=== PATIENT | male | born 1965 | race Caucasian/White ===

== ENCOUNTER 2019-05-20 15:44 | Emergency (ER) | payer BC ==
[2019-05-20] MEDS ORDERED: ONDANSETRON HCL IV 4 MG/2 ML VIAL IV ONE (15:59)
[2019-05-20] MEDS ORDERED: SODIUM CHLORIDE 0.9% 500 ML IV ONE (15:59)
[2019-05-20] MEDS ORDERED: KETOROLAC 30 MG/ML VIAL IVP ONE (16:00)
--- NOTE | 2019-05-20 16:05 | Emergency Department Record ---
History of Present Illness - General Chief Complaint: Abdominal Pain Stated Complaint: abd pain Time Seen by Provider: 05/20/19 15:56 Source: Patient Mode of Arrival: Ambulatory Limitations: No limitations - History of Present Illness Initial Comments: The patient is here due the acute onset of sharp stabbing suprapubic AP about 3 hours ago. The patient has had some nausea and vomiting with it but no flank pain. He does have a hx of kidney stones but has not had pain like this with them. There has been no fever, chills, or hematuria. MD Complaint: Abdominal pain Onset/Timin -: Hour(s) Location: Suprapubic Radiation: None Severity scale (1-10): 10 Quality: Sharp Consistency: Constant Improves With: Nothing Worsens With: Nothing Associated Symptoms: Nausea, Vomiting - Related Data Home Medications Medication Instructions Recorded Confirmed Last Taken No Home Med [NO HOME MEDS] 05/20/19 05/20/19 Unknown Allergies Allergy/AdvReac Type Severity Reaction Status Date / Time No Known Drug Allergies Allergy Verified 05/20/19 15:55 Travel Screening - Travel/Exposure Within Last 30 Days Have you traveled within the last 30 days?: No Review of Systems Constitutional: Denies: Chills, Fever Eyes: Denies: Eye discharge ENT: Denies: Congestion Respiratory: Denies: Cough, Dyspnea Past Medical History - SOCIAL HISTORY Smoking Status: Current every day smoker Alcohol Use: None Drug Use: None - RESPIRATORY Hx Respiratory Disorders: No - CARDIOVASCULAR Hx Cardio Disorders: No - NEURO Hx Neuro Disorders: No - GI Hx GI Disorders: No - Hx Genitourinary Disorders: Yes Hx Prostate Problems: Yes - MUSCULOSKELETAL Hx Musculoskeletal Disorders: No - PSYCH Hx Psych Problems: No - HEMATOLOGY/ONCOLOGY Hx Hematology/Oncology Disorders: No Family Medical History Any Significant Family History?: No Physical Exam - General General Appearance: Alert, Cooperative, Mild distress - Head Head exam: Atraumatic, Normocephalic - Eye Eye exam: Normal appearance, PERRL - ENT Throat exam: Normal inspection. negative: Tonsillar erythema, Tonsillar exudate - Neck Neck exam: Normal inspection, Full ROM. negative: Tenderness - Respiratory Respiratory exam: Normal lung sounds bilaterally. negative: Respiratory distress - Cardiovascular Cardiovascular Exam: Regular rate, Normal rhythm, Normal heart sounds. negative: Diastolic murmur, Systolic murmur - GI/Abdominal GI/Abdominal exam: Soft, Tenderness (There is significant suprapubic tenderness with no masses or obvious hernia's.). negative: Distended, Rebound, Rigid - exam: Circumcision, Normal inspection. negative: Scrotal swelling, Testicular tenderness, Urethral discharge - Extremities Extremities exam: Normal inspection, Full ROM, Normal capillary refill. negative: Tenderness - Neurological Neurological exam: Alert. negative: Motor sensory deficit Course Vital Signs 05/20/19 15:47 Temperature 97.7 F Pulse Rate 86 Respiratory 22 Rate Blood Pressure 136/87 Pulse Ox 100 - Reevaluation(s) Reevaluation #1: The patient is doing a LOT better at this time. His pain has completely resolved and he is feeling very well. I did discus the CT results with him and the fact the stone almost definitely has passed due to the pain being completely gone. 05/20/19 17:22 Reevaluation #2: The patient is doing very well at this time. He is pain free and resting comfortably. We are just waiting on the urine result. 05/20/19 17:44 Reevaluation #3: I did discuss the need to only take Tylenol for pain due to the mildly elevated kidney function tests. I also did discus the need to have his BUN and CR rechecked next week to be sure they are improving. 05/20/19 18:03 Medical Decision Making - Data Complexity MDM Data: Labs Ordered and/or Reviewed, X-Ray Ordered and/or Reviewed - Lab Data Result diagrams: 05/20/19 16:00 05/20/19 16:00 - Radiology Data Radiology results: Report reviewed (Abd CT: 2 mm distal R ureter stone with mild to mod hydro at level of bladder wall.) Disposition Disposition: Discharge Clinical Impression: Ureteral stone with hydronephrosis Disposition: Home, Self-Care Condition: (2) Stable Instructions: Renal Colic (ED) Additional Instructions: Please drink plenty of fluids and take Tylenol for pain. Please see your family doctor next week to have your kidney function tests repeated to be sure they are coming down. Return to the ER for any worsening pain, fever, or vomiting. Forms: Patient Portal Access Time of Disposition: 18:05 Quality - Quality Measures Quality Measures: N/A - Blood Pressure Screening View Details: Yes Does Patient Have Any of the Following: No Blood Pressure Classification: Pre-Hypertensive BP Reading Systolic Measurement: 136 Diastolic Measurement: 87 Screening for High Blood Pressure: < Pre-Hypertensive BP, F/U Documented > [G8950] Pre-Hypertensive Follow-up Interventions: Referral to alternative/primary care provider.
[2019-05-20 16:08] LABS: HEMATOCRIT 43.8 % (42.0-52.0); HEMOGLOBIN 15.6 gm/dl (14.0-18.0); MEAN CELL VOLUME 85.5 fl (81-97); MEAN CORPUSCULAR HEMOGLOBIN 30.5 pg (27-33); MEAN CORPUSCULAR HGB CONC 35.6 g/dl (32-36); MEAN PLATELET VOLUME 9.1 fl (7.4-10.4); PLATELET COUNT 420 K/uL (130-400); RED BLOOD COUNT 5.12 M/uL (4.40-5.70); RED CELL DISTRIBUTION WIDTH 13.3 % (11.5-14.5); WHITE BLOOD COUNT W/O DIFF 15.7 K/uL (4.2-12.2)
[2019-05-20] MEDS ORDERED: HYDROMORPHONE HCL 2 MG/ML VIAL IVP ONE (16:16)
[2019-05-20 16:19] LABS: BLOOD UREA NITROGEN 18 mg/dL (6-20); CREATININE 1.4 mg/dL (0.7-1.2); EST GLOMERULAR FILTRATION RATE 56 mL/min
[2019-05-20 16:20] LABS: LIPASE 40 U/L (13-60); TOTAL PROTEIN 7.8 g/dL (6.6-8.7)
[2019-05-20 16:22] LABS: GLUCOSE,RANDOM 125 mg/dL (74-109)
[2019-05-20 16:24] LABS: ALBUMIN 4.9 g/dL (4.0-5.0); ALKALINE PHOSPHATASE 99 U/L (40-129); ALT/SGPT 19 U/L (<41); AST/SGOT 20 U/L (10.0-50.0)
[2019-05-20 16:26] LABS: BILIRUBIN,DIRECT < 0.2 mg/dL (0-0.3)
[2019-05-20] MEDS ORDERED: 0.9 % SODIUM CHLORIDE 1,000 ML BAG IV ONE (16:35)
[2019-05-20 17:49] LABS: URINE APPEARANCE CLEAR; URINE BILIRUBIN SMALL (NEGATIVE); URINE BLOOD TRACE-I (NEGATIVE); URINE COLOR YELLOW; URINE GLUCOSE (UA) NEGATIVE (NEGATIVE); URINE KETONE 15 mg/dL (NEGATIVE); URINE LEUKOCYTE ESTERASE NEGATIVE (NEGATIVE); URINE NITRITE NEGATIVE (NEGATIVE); URINE UROBILINOGEN 0.2 E.U./dL (0.20 - 1.00)
[2019-05-20 17:58] LABS: URINE EPITHELIAL CELLS 0 - 2 (FEW); URINE MUCUS HEAVY; URINE RBC 0 - 2 (NONE SEEN); URINE WBC NONE SEEN (0-2/hpf)
--- NOTE | 2019-05-21 13:04 | CT SCAN REPORT ---
EXAM: CT OF THE ABDOMEN AND PELVIS WITHOUT CONTRAST HISTORY: MIDLINE PELVIC PAIN. TECHNIQUE: Noncontrast CT of the abdomen and pelvis was obtained. FINDINGS: The lung bases and pleural spaces are clear. The liver and gallbladder are normal. The pancreas and spleen are normal. No adrenal lesions are seen. The left kidney and ureter are unremarkable. There is hydronephrosis of the right collecting system to the level of the bladder wall. At the bladder wall there is a 2 mm calculus in the distal ureter on the right. There is no evidence of perinephric inflammation. The bowel is unremarkable. The bladder is unremarkable. There is no pelvic sidewall adenopathy. IMPRESSION: MILDLY OBSTRUCTING DISTAL RIGHT URETERAL CALCULUS. JOB NUMBER: [id number] MTDD
== END 2019-05-20 18:20 | disposition home or self-care (01) ==
LOC: ER 15:44
DX: N13.2 Hydronephrosis with renal and ureteral calculous obstruction (principal); R79.89 Other specified abnormal findings of blood chemistry; R11.2 Nausea with vomiting, unspecified; Z87.442 Personal history of urinary calculi
CPT/HCPCS: 74176; 80048; 80076; 81001; 83690; 85027; 96374; 96375; 99284; J1885; J2405; J7030